=== PATIENT | female | born 1995 | race Caucasian/White ===

== ENCOUNTER 2016-06-25 20:55 | Emergency (ER) | payer SELFPAY ==
[2016-06-25] MEDS ORDERED: ACETAMINOPHEN 325 MG TABLET PO ONE (21:18)
[2016-06-25 21:43] LABS: HEMATOCRIT 40.6 % (36.0-47.0); HEMOGLOBIN 14.2 g/dL (12.0-15.5); MEAN CORPUSCULAR HEMOGLOBIN 31.2 pg (27.0-33.4); MEAN CORPUSCULAR HGB CONC 34.9 g/dL (32.0-36.0); MEAN CORPUSCULAR VOLUME 90 fl (80-97); RED BLOOD COUNT 4.54 10^6/uL (3.72-5.28); RED CELL DISTRIBUTION WIDTH 12.8 % (11.5-14.0); WHITE BLOOD COUNT 10.2 10^3/uL (4.0-10.5)
[2016-06-25 21:48] LABS: APPEARANCE,URINE SLIGHTLY-CLOUDY; BILIRUBIN,URINE NEGATIVE (NEGATIVE); GLUCOSE, URINE NEGATIVE (NEGATIVE); KETONES,URINE NEGATIVE (NEGATIVE); LEUKOCYTE ESTERASE,URINE TRACE (NEGATIVE); NITRITE,URINE POSITIVE (NEGATIVE); PROTEIN,URINE NEGATIVE (NEGATIVE); URINE SPECIFIC GRAVITY 1.011; UROBILINOGEN,URINE NEGATIVE mg/dL (<2.0)
[2016-06-25 22:00] LABS: BAND NEUTROPHILS % (MANUAL) 6 % (3-5); BASOPHILS % (MANUAL) 0 % (0-2); EOSINOPHILS % (MANUAL) 0 % (0-6); LYMPHOCYTES % (MANUAL) 4 % (13-45); TOTAL CELLS COUNTED 100
[2016-06-25 22:01] LABS: ALANINE AMINOTRANSFERASE 27 U/L (9-52); ALBUMIN 4.5 g/dL (3.5-5.0); ALKALINE PHOSPHATASE 67 U/L (38-126); ANION GAP 12 (5-19); ASPARTATE AMINO TRANSFERASE 19 U/L (14-36); BILIRUBIN,DIRECT 0.4 mg/dL (0.0-0.4); BILIRUBIN,TOTAL 1.1 mg/dL (0.2-1.3); BLOOD UREA NITROGEN 12 mg/dL (7-20); CALCIUM 9.9 mg/dL (8.4-10.2); CARBON DIOXIDE 28 mmol/L (22-30); CHLORIDE 99 mmol/L (98-107); CREATININE RESULT 0.78 mg/dL (0.52-1.25); GLUCOSE 106 mg/dL (75-110); LIPASE 38.8 U/L (23-300); POTASSIUM 4.2 mmol/L (3.6-5.0); RBC MORPHOLOGY COMMENT NORMO-CYTIC/CHROMIC; SODIUM 139.3 mmol/L (137-145); TOTAL PROTEIN 7.4 g/dL (6.3-8.2)
[2016-06-25 22:02] LABS: PLATELET CLUMPS PRESENT
[2016-06-25] MEDS ORDERED: CIPROFLOXACIN HCL 500 MG TABLET PO ONE (23:39)
[2016-06-25] MEDS ORDERED: OXYCODONE-ACETAMINOPHEN 5-325 MG TABLET PO ONE (23:39)
[2016-06-25] MEDS ORDERED: CEFTRIAXONE INJ 1000 MG VIAL IM ONE (23:39)
[2016-06-25] MEDS ORDERED: LIDOCAINE 1% INJ-PF (10 MG/ML) 30 ML SDV INJ ONE (23:39)
[2016-06-25] MEDS ORDERED: HYDROCODONE/ACETAMINOPHEN 5-325 MG 6 TAB/DSPK PO PRN (23:40)
--- NOTE | 2016-06-25 23:40 | ER Document Report ---
ED GI/ <HEATHERRICHARD Read - Last Filed: 06/25/16 23:40> - General Mode of Arrival: Ambulatory Information source: Patient TRAVEL OUTSIDE OF THE [place] IN LAST 30 DAYS: No - HPI Patient complains to provider of: Abdominal pain Onset: This afternoon Location: RLQ Associated symptoms: Other - see notes above <ARUN MONTES - Last Filed: 06/25/16 23:53> - General Chief Complaint: Abdominal Pain Stated Complaint: ABDOMINAL PAIN Time Seen by Provider: 06/25/16 23:25 Notes: 21 year old female with no prior medical history presents to the ED complaining of RLQ abdominal pain that started this afternoon while driving to [place] from [place]. Patient reports that she had the chills even though it was 90F outside. Patient denies nausea, vomiting, or diarrhea. Patient explains that she was bloated yesterday. Patient's last menstrual period was 2 weeks ago. (ARUN MONTES) - Related Data Allergies/Adverse Reactions: No Known Allergies Allergy (Verified 06/25/16 21:13) Past Medical History - General Information source: Patient - Social History Smoking Status: Never Smoker Frequency of alcohol use: Occasional Family History: Reviewed & Not Pertinent Patient has suicidal ideation: No Patient has homicidal ideation: No - Medical History Medical History: Negative Renal/ Medical History: Denies: Hx Peritoneal Dialysis <ARUN MONTES - Last Filed: 06/25/16 23:53> Review of Systems - Review of Systems Constitutional: See HPI, Chills, Fever EENT: No symptoms reported Cardiovascular: No symptoms reported Respiratory: No symptoms reported Gastrointestinal: See HPI, Abdomen distended, Abdominal pain - RLQ. denies: Diarrhea, Nausea, Vomiting Genitourinary: No symptoms reported Female Genitourinary: See HPI, Last menstrual period - 2 weeks ago Musculoskeletal: No symptoms reported Skin: No symptoms reported Hematologic/Lymphatic: No symptoms reported Neurological/Psychological: No symptoms reported -: Yes All other systems reviewed and negative <ARUN MONTES - Last Filed: 06/25/16 23:53> Physical Exam - General General appearance: Alert In distress: None - HEENT Head: Normocephalic, Atraumatic Eyes: Normal Extraocular movements intact: Yes Pupils: PERRL - Respiratory Respiratory status: No respiratory distress - Cardiovascular Rhythm: Regular - Abdominal Inspection: Normal Distension: No distension Tenderness: Nontender - RLQ is not tender to palpate., Tender - RUQ tenderness to deep palpation. Tenderness to palpation laterally and interlaterally under the right rib margin. - Back Back: CVA tenderness - Right - Extremities General upper extremity: Normal inspection, Normal ROM General lower extremity: Normal inspection, Normal ROM - Neurological Neuro grossly intact: Yes - Psychological Associated symptoms: Normal affect, Normal mood - Skin Skin Temperature: Warm Skin Moisture: Dry Skin Color: Normal <ARUN MONTES - Last Filed: 06/25/16 23:53> - Vital signs Vitals: Temp Pulse Resp BP Pulse Ox 100.7 F H 108 H 16 141/69 H 98 06/25/16 21:13 06/25/16 21:13 06/25/16 21:13 06/25/16 21:13 06/25/16 21:13 Course - Laboratory Result Diagrams: 06/25/16 21:30 06/25/16 21:30 <RICHARD ROMERO - Last Filed: 06/25/16 23:40> - Laboratory Result Diagrams: 06/25/16 21:30 06/25/16 21:30 <ARUN MONTES - Last Filed: 06/25/16 23:53> - Vital Signs Vital signs: Temp Pulse Resp BP Pulse Ox 100.7 F H 108 H 16 141/69 H 98 06/25/16 21:13 06/25/16 21:13 06/25/16 21:13 06/25/16 21:13 06/25/16 21:13 - Laboratory Laboratory results interpreted by me: 06/25/16 06/25/16 21:30 21:30 Seg Neuts % (Manual) 84 H Band Neutrophils % 6 H Lymphocytes % (Manual) 4 L Abs Neuts (Manual) 9.2 H Abs Lymphs (Manual) 0.4 L Urine Blood SMALL H Urine Nitrite POSITIVE H Ur Leukocyte Esterase TRACE H Discharge <RICHARD ROMERO - Last Filed: 06/25/16 23:40> <ARUN MONTES - Last Filed: 06/25/16 23:53> - Discharge Clinical Impression: Pyelonephritis Fever Qualifiers: Fever type: unspecified Qualified Code(s): R50.9 - Fever, unspecified Additional Instructions: Pyelonephritis: Your evaluation shows evidence of pyelonephritis. This is an infection in the kidney. Typical symptoms are fever, pain in the flank, pain on urination, and frequent urination. Many cases of pyelonephritis can be treated at home. Hospital care may be necessary for patients who are very ill, or elderly or . Pyelonephritis is treated with antibiotics. Be sure to take all the medication as prescribed. Drink plenty of liquids (about three quarts per day) . You may take acetaminophen for fever. You should feel significantly improved within two days. You should have a recheck of your urine in about one week to insure that the infection is gone. Return for a re-examination if your symptoms worsen in any way -- such as high fever, shaking chills, severe weakness or dizziness, severe pain, or inability to pass your urine. TAKE THE MEDICATION PRESCRIBED. DRINK PLENTY OF FLUIDS. REST. FOLLOW UP WITH A LOCAL MEDICAL DOCTOR IF NOT IMPROVING. RETURN TO THE EMERGENCY ROOM IF ANY NEW OR WORSENING SYMPTOMS. Prescriptions: Ciprofloxacin HCl [Cipro 500 mg Tablet] 500 mg PO BID #14 tablet Hydrocodone/Acetaminophen [[place] 5-325 mg Tablet] 1 tab PO Q4 PRN #15 tablet PRN Reason: Scribe Attestation: 06/25/16 23:43 I personally performed the services described in the documentation, reviewed and edited the documentation which was dictated to the scribe in my presence, and it accurately records my words and actions. (RICHARD ROMERO) Scribe Documentation - Scribe Written by Khloe:: Khloe Morgan, 06/25/2016 [id number] acting as scribe for :: Heather <ARUN MONTES - Last Filed: 06/25/16 23:53>
[2016-06-26 00:26] VITALS: BP 119/68
== END 2016-06-26 00:25 | disposition home or self-care (01) ==
LOC: ER 20:55
DX: N12 Tubulo-interstitial nephritis, not specified as acute or chronic (principal); R50.9 Fever, unspecified; R10.31 Right lower quadrant pain; R14.0 Abdominal distension (gaseous)
CPT/HCPCS: 99284; 96372; 36415; 87086; 83690; 85025; 81025; 87088; 80053; 81001; 87186; J3490; J0696